=== PATIENT | male | born 1985 | race Hispanic/Latino ===

== ENCOUNTER 2019-02-12 19:55 | Inpatient (IN) | payer OTHER, SELFPAY ==
[2019-02-12 19:55] VITALS: BP 160/72; PULSE 98; RESP 14; TEMP 36.6; O2SAT 98
--- NOTE | 2019-02-12 20:20 | ED.ABDPAIN ---
HPI - Abdominal Pain General Chief Complaint: Abdominal Pain Stated Complaint: ABD PAIN Time Seen by Provider: 02/12/19 20:20 Source: patient Mode of arrival: ambulatory Limitations: no limitations History of Present Illness HPI narrative: The patient developed periumbilical abdominal pain about 11 a.m. today. He has had increased pain, now radiating to the right lower quadrant since onset. He had fever and chills earlier. He has no associated nausea, vomiting or diarrhea. He has no testicular pain or dysuria. He has no back pain. He has no chronic medical problems. He has no prior GI or surgeries. He is in generally good health. He has had nothing to eat since this morning, he has no appetite. Related Data Home Medications Medication Instructions Recorded Confirmed multivitamin [Multiple Vitamins] 1 tab PO QDAY #0 08/01/16 02/12/19 Allergies Allergy/AdvReac Type Severity Reaction Status Date / Time No Known Drug Allergies Allergy Verified 02/12/19 20:02 Review of Systems Review of Systems ROS Unobtainable: All systems reviewed & are unremarkable except as noted in HPI and below Constitutional Reports chills, Reports fever(s), Denies lethargy and Denies weakness ENT Ears, Nose, Mouth, and Throat: Denies dizziness, Denies neck pain and Denies sore throat Cardiovascular Denies chest pain, Denies lightheadedness, Denies palpitations and Denies dyspnea Respiratory Denies cough, Denies dyspnea and Denies wheezing Gastrointestinal Gastrointestinal: Reports as per HPI Genitourinary Reports as per HPI Musculoskeletal Denies back pain and Denies neck pain Integumentary/Breasts Denies erythema and Denies rash Neurologic Denies dizziness and Denies weakness Endocrine Denies palpitations Allergic/Immunologic Denies wheezing [facility] Medical History (Updated 02/12/19 @ 22:42 by Fredo Lou MD) No active medical problems (Acute) Obese (Acute) Surgical History (Updated 02/12/19 @ 20:37 by Fredo Lou MD) No pertinent past surgical history (Acute) Family History Father Age: 68 Type 2 diabetes mellitus without complication, unspecified termite treater helper insulin use status Social History household members: spouse and children Smoking Status: Never smoker alcohol intake: current Family History Father Age: 68 Type 2 diabetes mellitus without complication, unspecified [facility] insulin use status Social History household members: spouse and children Smoking Status: Never smoker alcohol intake: current Exam Initial Vital Signs Initial Vital Signs: Vital Signs Temperature 97.8 F 02/12/19 19:55 Pulse Rate 98 H 02/12/19 19:55 Respiratory Rate 14 02/12/19 19:55 Blood Pressure 160/72 H 02/12/19 19:55 Pulse Oximetry 98 02/12/19 19:55 Const General: cooperative and well developed Nutritional Appearance: well nourished Orientation: alert, awake and oriented x3 HENMT Head: normal to inspection, normocephalic and atraumatic Mouth: oral mucosae normal Throat: posterior oropharynx normal Eyes General: appearance normal, both eyes and all related structures Neck Lymphatic: No lymphadenopathy Resp Effort & Inspection: normal respiratory effort and able to speak in complete sentences Auscultation: clear to auscultation bilaterally, no rales, no rhonchi and no wheezes Cardio Rate: regular rate Rhythm: regular rhythm Heart Sounds: S1 normal, S2 normal, no click, no gallops, no murmurs and no rubs Pulses: normal peripheral pulses GI Inspection: non-distended Palpation: no hepatosplenomegaly Auscultation: normal bowel sounds Other: Periumbilical and right lower quadrant tenderness with guarding. No rebound. Negative heel tap. Back/Spine/Pelvis Back: No CVA tenderness Skin General: no rashes or lesions noted Neuro General: alert, oriented x3, gait normal and no focal motor deficits Speech: speech normal Extrem General: normal to inspection and full ROM Psych Appearance: well kempt Mental Status: mental status grossly normal Attitude: cooperative Thought Content: normal and suicidality Judgment: judgment good Course Course Narrative: Acute appendicitis was confirmed with CT. I discussed the case with surgery, Dr. Zamorano. Dr. Zamorano has accepted the patient. The patient will be started on Zosyn, then admitted to the surgery service. He will be NPO with anticipated surgery in the morning. Orders Ordered: ED Orders 02/12/19 20:03 EKG-12 Lead Stat 02/12/19 20:20 Complete Blood Count AUTO DIFF Stat Comprehensive Metabolic Panel Stat Lipase Stat Partial Thromboplastin Time Stat Prothrombin Time INR Stat 02/12/19 20:33 CT abdomen pelvis w con Stat Hydromorphone HCl (Dilaudid) 1 mg IV Q4HR PRN PRN Reason: Pain, Moderate (4-6) Last Admin: 02/13/19 00:12 Dose: 1 mg Piperacillin/Tazobactam/Dextrose (Zosyn) 3.375 gm in 50 mls @ 100 mls/hr IV Q6H [facility] Last Infusion: 02/13/19 00:46 Dose: 0 mls/hr Infusion: 02/12/19 23:39 Dose: 100 mls/hr Admin: 02/12/19 23:06 Dose: 100 mls/hr Sodium Chloride (Normal Saline 0.9%) 1,000 mls @ 150 mls/hr IV CONT [facility] Last Infusion: 02/12/19 23:40 Dose: 150 mls/hr Admin: 02/12/19 23:06 Dose: 150 mls/hr Ondansetron HCl (Zofran) 4 mg IV Q4HR PRN PRN Reason: Nausea And Vomiting Sodium Chloride (Normal Saline 0.9% Flush) 10 ml IV PRN PRN PRN Reason: Flush Last Admin: 02/13/19 00:47 Dose: 10 ml Discontinued Medications Piperacillin/Tazobactam/Dextrose (Zosyn) 3.375 gm in 50 mls @ 100 mls/hr IV Q6H [facility] Last Admin: 02/12/19 23:09 Dose: Not Given Ketorolac Tromethamine (Toradol) 30 mg IV NOW ONE Stop: 02/12/19 20:34 Last Admin: 02/12/19 21:03 Dose: 30 mg Ondansetron HCl (Zofran) 4 mg IV NOW ONE Stop: 02/12/19 20:04 Last Admin: 02/12/19 20:24 Dose: 4 mg Vital Signs - 8 hr 02/12/19 19:55 02/12/19 22:17 02/13/19 00:02 Temperature 97.8 F 99.7 F H Pulse Rate 98 H 89 78 Respiratory Rate 14 19 16 Blood Pressure 160/72 H 146/80 H Blood Pressure [Right Arm] 135/81 Pulse Oximetry 98 100 98 02/13/19 00:12 Temperature 97.7 F Pulse Rate Respiratory Rate Blood Pressure Blood Pressure [Right Arm] Pulse Oximetry MDM - Abdominal Pain Lab Data Result diagrams: 02/12/19 20:20 02/12/19 20:20 Lab Results 02/12/19 02/12/19 02/12/19 Range/Units 20:20 20:20 20:20 WBC 12.3 H (4.5-11.0) X10^3/uL RBC 5.13 (4.5-5.9) X10^6/uL Hgb 15.5 (13.5-17.5) g/dL Hct 44.8 (41-53) % MCV 87.4 (80-100) fL MCH 30.2 (26-34) PG MCHC 34.6 (30-36) % RDW 13.2 (11.6-14.8) % Plt Count 246 (150-400) X10^3/uL Neut % (Auto) 85.7 H (50-75) % Lymph % (Auto) 8.1 L (25-40) % [place] % (Auto) 5.3 (3-14) % Eos % (Auto) 0.5 L (2-4) % Baso % (Auto) 0.4 (0-2) % Neut # (Auto) 78547 H (1377-0924) /uL Lymph # (Auto) 1000 L (3913-4311) /uL Fisher # (Auto) 700 (0-900) /uL Eos # (Auto) 100 (0-450) /uL Baso # (Auto) 0 (0-100) /uL PT 12.0 (10.1-12.7) SECONDS INR 1.0 (0.9-1.3) APTT 31 (26.4-36.2) SECONDS Sodium 140 (137-145) mmol/L Potassium 4.2 (3.4-5.1) mmol/L Chloride 101 (98-107) mmol/L Carbon Dioxide 27 (22-32) mmol/L BUN 12 (9-20) mg/dL Creatinine 0.70 (0.66-1.25) mg/dL Estimated GFR > 60.0 (>60) mL/min BUN/Creatinine Ratio 17.1 (6-22) Glucose 128 H (70-100) mg/dL Calcium 9.8 (8.4-10.2) mg/dL Total Bilirubin 1.2 (0.2-1.3) mg/dL AST 26 (17-59) IU/L ALT 43 (21-72) IU/L Alkaline Phosphatase 74 (38-126) U/L Total Protein 8.1 (6.3-8.2) g/dL Albumin 4.8 (3.5-5.0) g/dL Globulin 3.3 (1.7-4.1) g/dL Albumin/Globulin Ratio 1.5 (1.0-2.8) Lipase 49 (23-300) U/L Point of care testing: Urine Dip Bedside Urine Glucose Negative Bedside Urine Bilirubin - Negative Bedside Urine Ketone - Negative Urine Specific [place] 1.030 Bedside Urine Occult Blood - Negative Bedside Urine pH 5.0 Bedside Urine Protein +/- 15 Bedside Urine Urobilinogen - Negative Bedside Urine Nitrite - Negative Bedside Urine Leukocytes - Negative Esterase Imaging Data CT scan - abdomen: Radiologist's impression: [place] [address] CT Scan Report Signed Patient: ElmoFredo perez LMR#: [id number] : 1985Acct:[id number] Age/Sex: te of Service: 02/12/19 Loc: ED Accession Number: [id number] Procedure: CT abdomen pelvis w con Ordering Provider: Fredo Lou MD PROCEDURE: CT ABDOMEN PELVIS W CON INDICATIONS: RLQ pain TECHNIQUE: After the administration of oral and intravenous contrast, 5 mm thick sections acquired from the diaphragms to the symphysis. 5 mm thick coronal and sagittal reformats were performed. For radiation dose reduction, the following was used: automated exposure control, adjustment of mA and/or kV according to patient size. COMPARISON: None. FINDINGS: Image quality: Excellent. ABDOMEN: Lung bases: Lung bases are clear. Heart size is normal. Solid organs: Liver is normal in size. Moderate hepatic steatosis is seen. No discrete hepatic lesion. Gallbladder is within normal limits. Biliary system is non-dilated. Pancreas enhances normally. Spleen is normal in size. 1.9 cm hypodense structure is noted involving posterior inferior aspect of spleen and may represent a splenic cyst. No adrenal nodules. Kidneys are normal in size and enhancement, without hydronephrosis. Peritoneum and bowel: There is no bowel obstruction. 8mm appendicolith is noted in the mid appendix. Mid to distal appendix is enlarged, measures up to 1.3 cm in diameter with periappendiceal fat stranding and appendiceal wall thickening. Mild adjacent wall thickening in the ileocecal junction is also seen. Finding is suggestive of acute appendicitis. No abscess collection. No free fluid or free air. No other area of abnormal bowel wall thickening. Nodes and vessels: No retroperitoneal or mesenteric adenopathy. Aorta and inferior vena cava are normal in caliber. Miscellaneous: No ventral hernias. PELVIS: Genitourinary: Bladder wall thickness is normal. Miscellaneous: No inguinal hernias or adenopathy. Bones: No suspicious bony lesions. No vertebral body compression fractures. IMPRESSION: 1. Finding is consistent with acute appendicitis with appendicolith. No abscess collection. No bowel obstruction. No free fluid or free air. 2. 1.9 cm hypodense area involving posterior inferior spleen, and may represent splenic cysts. Hepatic steatosis. Dictated by: Shin Morel M.D. on 02/12/2019 at 21:54 Approved by: Shin Morel M.D. on 02/12/2019 at 21:58 Discharge Plan Departure Patient Disposition: Admitted As Inpatient Clinical Impression: Acute appendicitis Qualifiers: Acute appendicitis type: with localized peritonitis Appendicitis gangrene presence: without gangrene Appendicitis perforation presence: without perforation Appendicitis abscess presence: without abscess Qualified Code(s): K35.30 - Acute appendicitis with localized peritonitis, without perforation or gangrene Discharge Date/Time: 02/12/19 23:42 Interventions: ED Discharge Assessment Last Done: 02/12/19 23:41 Admit Date/Time: 02/12/19 23:28 Admit Provider: Rah Zamorano
[2019-02-12] MEDS: ONDANSETRON 4 MG/2 ML INJ IV (20:24)
[2019-02-12 20:33] LABS: Add Manual Diff / Slide Review NO; Basophils Absolute Auto 0 /uL (0-100); Basophils Percent Auto 0.4 % (0-2); Eosinophils Absolute Auto 100 /uL (0-450); Eosinophils Percent Auto 0.5 % (2-4); Hematocrit 44.8 % (41-53); Hemoglobin 15.5 g/dL (13.5-17.5); Lymphocytes Absolute Auto 1000 /uL (1100-4500); Lymphocytes Percent Auto 8.1 % (25-40); Mean Corpuscular HGB Conc 34.6 % (30-36); Mean Corpuscular Hemoglobin 30.2 PG (26-34); Mean Corpuscular Volume 87.4 fL (80-100); Monocytes Absolute Auto 700 /uL (0-900); Monocytes Percent Auto 5.3 % (3-14); Neutrophils Absolute Auto 10500 /uL (1500-7000); Neutrophils Percent Auto 85.7 % (50-75); Platelet Count 246 X10^3/uL (150-400); Red Blood Cell Count 5.13 X10^6/uL (4.5-5.9); Red Cell Distribution Width 13.2 % (11.6-14.8); White Blood Cell Count 12.3 X10^3/uL (4.5-11.0)
--- NOTE | 2019-02-12 20:33 | DI.CT.S_ITS ---
PROCEDURE: CT ABDOMEN PELVIS W CON INDICATIONS: RLQ pain TECHNIQUE: After the administration of oral and intravenous contrast, 5 mm thick sections acquired from the diaphragms to the symphysis. 5 mm thick coronal and sagittal reformats were performed. For radiation dose reduction, the following was used: automated exposure control, adjustment of mA and/or kV according to patient size. COMPARISON: None. FINDINGS: Image quality: Excellent. ABDOMEN: Lung bases: Lung bases are clear. Heart size is normal. Solid organs: Liver is normal in size. Moderate hepatic steatosis is seen. No discrete hepatic lesion. Gallbladder is within normal limits. Biliary system is non-dilated. Pancreas enhances normally. Spleen is normal in size. 1.9 cm hypodense structure is noted involving posterior inferior aspect of spleen and may represent a splenic cyst. No adrenal nodules. Kidneys are normal in size and enhancement, without hydronephrosis. Peritoneum and bowel: There is no bowel obstruction. 8mm appendicolith is noted in the mid appendix. Mid to distal appendix is enlarged, measures up to 1.3 cm in diameter with periappendiceal fat stranding and appendiceal wall thickening. Mild adjacent wall thickening in the ileocecal junction is also seen. Finding is suggestive of acute appendicitis. No abscess collection. No free fluid or free air. No other area of abnormal bowel wall thickening. Nodes and vessels: No retroperitoneal or mesenteric adenopathy. Aorta and inferior vena cava are normal in caliber. Miscellaneous: No ventral hernias. PELVIS: Genitourinary: Bladder wall thickness is normal. Miscellaneous: No inguinal hernias or adenopathy. Bones: No suspicious bony lesions. No vertebral body compression fractures. IMPRESSION: 1. Finding is consistent with acute appendicitis with appendicolith. No abscess collection. No bowel obstruction. No free fluid or free air. 2. 1.9 cm hypodense area involving posterior inferior spleen, and may represent splenic cysts. Hepatic steatosis. Dictated by: Shin Morel M.D. on 02/12/2019 at 21:54 Approved by: Shin Morel M.D. on 02/12/2019 at 21:58
[2019-02-12 20:39] LABS: Alanine Aminotransferase 43 IU/L (21-72); Albumin 4.8 g/dL (3.5-5.0); Albumin Globulin Ratio 1.5 (1.0-2.8); Alkaline Phosphatase 74 U/L (38-126); Aspartate Aminotransferase 26 IU/L (17-59); BUN Creatinine Ratio 17.1 (6-22); Bilirubin Total 1.2 mg/dL (0.2-1.3); Blood Urea Nitrogen 12 mg/dL (9-20); Calcium 9.8 mg/dL (8.4-10.2); Carbon Dioxide 27 mmol/L (22-32); Chloride 101 mmol/L (98-107); Estimated Glomerular Filt Rate > 60.0 mL/min (>60); Globulin 3.3 g/dL (1.7-4.1); Glucose 128 mg/dL (70-100); HEMOLYSIS < 15 (0-50); Lipase 49 U/L (23-300); Potassium 4.2 mmol/L (3.4-5.1); Sodium 140 mmol/L (137-145); Total Protein 8.1 g/dL (6.3-8.2)
--- NOTE | 2019-02-12 20:39 | ED_ITS ---
HPI - Abdominal Pain General Chief Complaint: Abdominal Pain Stated Complaint: ABD PAIN Time Seen by Provider: 02/12/19 20:20 Source: patient Mode of arrival: ambulatory Limitations: no limitations History of Present Illness HPI narrative: The patient developed periumbilical abdominal pain about 11 a.m. today. He has had increased pain, now radiating to the right lower quadrant since onset. He had fever and chills earlier. He has no associated nausea, vomiting or diarrhea. He has no testicular pain or dysuria. He has no back pain. He has no chronic medical problems. He has no prior GI or surgeries. He is in generally good health. He has had nothing to eat since this morning, he has no appetite. Related Data Home Medications Medication Instructions Recorded Confirmed multivitamin [Multiple Vitamins] 1 tab PO QDAY #0 08/01/16 02/12/19 Allergies Allergy/AdvReac Type Severity Reaction Status Date / Time No Known Drug Allergies Allergy Verified 02/12/19 20:02 Review of Systems Review of Systems ROS Unobtainable: All systems reviewed & are unremarkable except as noted in HPI and below Constitutional Reports chills, Reports fever(s), Denies lethargy and Denies weakness ENT Ears, Nose, Mouth, and Throat: Denies dizziness, Denies neck pain and Denies sore throat Cardiovascular Denies chest pain, Denies lightheadedness, Denies palpitations and Denies dyspnea Respiratory Denies cough, Denies dyspnea and Denies wheezing Gastrointestinal Gastrointestinal: Reports as per HPI Genitourinary Reports as per HPI Musculoskeletal Denies back pain and Denies neck pain Integumentary/Breasts Denies erythema and Denies rash Neurologic Denies dizziness and Denies weakness Endocrine Denies palpitations Allergic/Immunologic Denies wheezing [facility] Medical History (Updated 02/12/19 @ 22:42 by Fredo Lou MD) No active medical problems (Acute) Obese (Acute) Surgical History (Updated 02/12/19 @ 20:37 by Fredo Lou MD) No pertinent past surgical history (Acute) Family History Father Age: 68 Type 2 diabetes mellitus without complication, 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 Social History household members: spouse and children Smoking Status: Never smoker alcohol intake: current Family History Father Age: 68 Type 2 diabetes mellitus without complication, unspecified correction insulin use status Social History household members: spouse and children Smoking Status: Never smoker alcohol intake: current Exam Initial Vital Signs Initial Vital Signs: Vital Signs Temperature 97.8 F 02/12/19 19:55 Pulse Rate 98 H 02/12/19 19:55 Respiratory Rate 14 02/12/19 19:55 Blood Pressure 160/72 H 02/12/19 19:55 Pulse Oximetry 98 02/12/19 19:55 Const General: cooperative and well developed Nutritional Appearance: well nourished Orientation: alert, awake and oriented x3 HENMT Head: normal to inspection, normocephalic and atraumatic Mouth: oral mucosae normal Throat: posterior oropharynx normal Eyes General: appearance normal, both eyes and all related structures Neck Lymphatic: No lymphadenopathy Resp Effort & Inspection: normal respiratory effort and able to speak in complete sentences Auscultation: clear to auscultation bilaterally, no rales, no rhonchi and no wheezes Cardio Rate: regular rate Rhythm: regular rhythm Heart Sounds: S1 normal, S2 normal, no click, no gallops, no murmurs and no rubs Pulses: normal peripheral pulses GI Inspection: non-distended Palpation: no hepatosplenomegaly Auscultation: normal bowel sounds Other: Periumbilical and right lower quadrant tenderness with guarding. No rebound. Negative heel tap. Back/Spine/Pelvis Back: No CVA tenderness Skin General: no rashes or lesions noted Neuro General: alert, oriented x3, gait normal and no focal motor deficits Speech: speech normal Extrem General: normal to inspection and full ROM Psych Appearance: well kempt Mental Status: mental status grossly normal Attitude: cooperative Thought Content: normal and suicidality Judgment: judgment good Course Course Narrative: Acute appendicitis was confirmed with CT. I discussed the case with surgery, Dr. Zamorano. Dr. Zamorano has accepted the patient. The patient will be started on Zosyn, then admitted to the surgery service. He will be NPO with anticipated surgery in the morning. Orders Ordered: ED Orders 02/12/19 20:03 EKG-12 Lead Stat 02/12/19 20:20 Complete Blood Count AUTO DIFF Stat Comprehensive Metabolic Panel Stat Lipase Stat Partial Thromboplastin Time Stat Prothrombin Time INR Stat 02/12/19 20:33 CT abdomen pelvis w con Stat Hydromorphone HCl (Dilaudid) 1 mg IV Q4HR PRN PRN Reason: Pain, Moderate (4-6) Last Admin: 02/13/19 00:12 Dose: 1 mg Piperacillin/Tazobactam/Dextrose (Zosyn) 3.375 gm in 50 mls @ 100 mls/hr IV Q6H [facility] Last Infusion: 02/13/19 00:46 Dose: 0 mls/hr Infusion: 02/12/19 23:39 Dose: 100 mls/hr Admin: 02/12/19 23:06 Dose: 100 mls/hr Sodium Chloride (Normal Saline 0.9%) 1,000 mls @ 150 mls/hr IV CONT [facility] Last Infusion: 02/12/19 23:40 Dose: 150 mls/hr Admin: 02/12/19 23:06 Dose: 150 mls/hr Ondansetron HCl (Zofran) 4 mg IV Q4HR PRN PRN Reason: Nausea And Vomiting Sodium Chloride (Normal Saline 0.9% Flush) 10 ml IV PRN PRN PRN Reason: Flush Last Admin: 02/13/19 00:47 Dose: 10 ml Discontinued Medications Piperacillin/Tazobactam/Dextrose (Zosyn) 3.375 gm in 50 mls @ 100 mls/hr IV Q6H [facility] Last Admin: 02/12/19 23:09 Dose: Not Given Ketorolac Tromethamine (Toradol) 30 mg IV NOW ONE Stop: 02/12/19 20:34 Last Admin: 02/12/19 21:03 Dose: 30 mg Ondansetron HCl (Zofran) 4 mg IV NOW ONE Stop: 02/12/19 20:04 Last Admin: 02/12/19 20:24 Dose: 4 mg Vital Signs - 8 hr 02/12/19 19:55 02/12/19 22:17 02/13/19 00:02 Temperature 97.8 F 99.7 F H Pulse Rate 98 H 89 78 Respiratory Rate 14 19 16 Blood Pressure 160/72 H 146/80 H Blood Pressure [Right Arm] 135/81 Pulse Oximetry 98 100 98 02/13/19 00:12 Temperature 97.7 F Pulse Rate Respiratory Rate Blood Pressure Blood Pressure [Right Arm] Pulse Oximetry MDM - Abdominal Pain Lab Data Result diagrams: 02/12/19 20:20 02/12/19 20:20 Lab Results 02/12/19 02/12/19 02/12/19 Range/Units 20:20 20:20 20:20 WBC 12.3 H (4.5-11.0) X10^3/uL RBC 5.13 (4.5-5.9) X10^6/uL Hgb 15.5 (13.5-17.5) g/dL Hct 44.8 (41-53) % MCV 87.4 (80-100) fL MCH 30.2 (26-34) PG MCHC 34.6 (30-36) % RDW 13.2 (11.6-14.8) % Plt Count 246 (150-400) X10^3/uL Neut % (Auto) 85.7 H (50-75) % Lymph % (Auto) 8.1 L (25-40) % [place] % (Auto) 5.3 (3-14) % Eos % (Auto) 0.5 L (2-4) % Baso % (Auto) 0.4 (0-2) % Neut # (Auto) 85974 H (8717-9003) /uL Lymph # (Auto) 1000 L (0329-9672) /uL [place] # (Auto) 700 (0-900) /uL Eos # (Auto) 100 (0-450) /uL Baso # (Auto) 0 (0-100) /uL PT 12.0 (10.1-12.7) SECONDS INR 1.0 (0.9-1.3) APTT 31 (26.4-36.2) SECONDS Sodium 140 (137-145) mmol/L Potassium 4.2 (3.4-5.1) mmol/L Chloride 101 (98-107) mmol/L Carbon Dioxide 27 (22-32) mmol/L BUN 12 (9-20) mg/dL Creatinine 0.70 (0.66-1.25) mg/dL Estimated GFR > 60.0 (>60) mL/min BUN/Creatinine Ratio 17.1 (6-22) Glucose 128 H (70-100) mg/dL Calcium 9.8 (8.4-10.2) mg/dL Total Bilirubin 1.2 (0.2-1.3) mg/dL AST 26 (17-59) IU/L ALT 43 (21-72) IU/L Alkaline Phosphatase 74 (38-126) U/L Total Protein 8.1 (6.3-8.2) g/dL Albumin 4.8 (3.5-5.0) g/dL Globulin 3.3 (1.7-4.1) g/dL Albumin/Globulin Ratio 1.5 (1.0-2.8) Lipase 49 (23-300) U/L Point of care testing: Urine Dip Bedside Urine Glucose Negative Bedside Urine Bilirubin - Negative Bedside Urine Ketone - Negative Urine Specific [place] 1.030 Bedside Urine Occult Blood - Negative Bedside Urine pH 5.0 Bedside Urine Protein +/- 15 Bedside Urine Urobilinogen - Negative Bedside Urine Nitrite - Negative Bedside Urine Leukocytes - Negative Esterase Imaging Data CT scan - abdomen: Radiologist's impression: [place] [address] CT Scan Report Signed Patient: ElmoFredo perez LMR#: [id number] : 1985Acct:[id number] Age/Sex: te of Service: 02/12/19 Loc: ED Accession Number: [id number] Procedure: CT abdomen pelvis w con Ordering Provider: Fredo Lou MD PROCEDURE: CT ABDOMEN PELVIS W CON INDICATIONS: RLQ pain TECHNIQUE: After the administration of oral and intravenous contrast, 5 mm thick sections acquired from the diaphragms to the symphysis. 5 mm thick coronal and sagittal reformats were performed. For radiation dose reduction, the following was used: automated exposure control, adjustment of mA and/or kV according to patient size. COMPARISON: None. FINDINGS: Image quality: Excellent. ABDOMEN: Lung bases: Lung bases are clear. Heart size is normal. Solid organs: Liver is normal in size. Moderate hepatic steatosis is seen. No discrete hepatic lesion. Gallbladder is within normal limits. Biliary system is non- dilated. Pancreas enhances normally. Spleen is normal in size. 1.9 cm hypodense structure is noted involving posterior inferior aspect of spleen and may represent a splenic cyst. No adrenal nodules. Kidneys are normal in size and enhancement, without hydronephrosis. Peritoneum and bowel: There is no bowel obstruction. 8mm appendicolith is noted in the mid appendix. Mid to distal appendix is enlarged, measures up to 1.3 cm in diameter with periappendiceal fat stranding and appendiceal wall thickening. Mild adjacent wall thickening in the ileocecal junction is also seen. Finding is suggestive of acute appendicitis. No abscess collection. No free fluid or free air. No other area of abnormal bowel wall thickening. Nodes and vessels: No retroperitoneal or mesenteric adenopathy. Aorta and inferior vena cava are normal in caliber. Miscellaneous: No ventral hernias. PELVIS: Genitourinary: Bladder wall thickness is normal. Miscellaneous: No inguinal hernias or adenopathy. Bones: No suspicious bony lesions. No vertebral body compression fractures. IMPRESSION: 1. Finding is consistent with acute appendicitis with appendicolith. No abscess collection. No bowel obstruction. No free fluid or free air. 2. 1.9 cm hypodense area involving posterior inferior spleen, and may represent splenic cysts. Hepatic steatosis. Dictated by: Shin Morel M.D. on 02/12/2019 at 21:54 Approved by: Shin Morel M.D. on 02/12/2019 at 21:58 Discharge Plan Departure Patient Disposition: Admitted As Inpatient Clinical Impression: Acute appendicitis Qualifiers: Acute appendicitis type: with localized peritonitis Appendicitis gangrene presence: without gangrene Appendicitis perforation presence: without perforation Appendicitis abscess presence: without abscess Qualified Code(s): K35.30 - Acute appendicitis with localized peritonitis, without perforation or gangrene Discharge Date/Time: 02/12/19 23:42 Interventions: ED Discharge Assessment Last Done: 02/12/19 23:41 Admit Date/Time: 02/12/19 23:28 Admit Provider: Rah Zamorano
[2019-02-12 20:42] LABS: PTT Partial Thromboplastin Tim 31 SECONDS (26.4-36.2)
[2019-02-12] MEDS: KETOROLAC 60 MG/2 ML VIAL 30 MG IV (21:03)
[2019-02-12 22:17] VITALS: BP 135/81; PULSE 89; RESP 19; O2SAT 100
[2019-02-12] MEDS: SODIUM CHLORIDE 0.9% 1,000 ML 150 ML IV (23:06)
[2019-02-12] MEDS: PIPERACILLIN-TAZO 3.375 GM/50 ML FROZ.PIGGY IV (23:06)
[2019-02-13] VITALS (19 sets, daily range): BP systolic 110–147; BP diastolic 66–95; PULSE 77–106; RESP 12–24; TEMP 36.5–37.6; O2SAT 92–99; BMI 37.0
--- NOTE | 2019-02-13 | PATH_ITS ---
[facility] Accession Number: [id number] . 01 Material submitted: . appendix - APPENDIX . 01 Clinical history: . ABD. PAIN . 02 Diagnosis: Appendix, Appendectomy: Markedly active acute appendicitis with serositis. No evidence of neoplasm. I/02/17/2019 . 02 Electronically signed: . Tyrell Dubon MD, PhD, Pathologist NPI- [id number] . 01 Gross description: . Received in formalin, labeled appendix, is an intact appendix (length-8.4 cm, diameter-1.1 cm) with aguilera-brown focally exudate-covered serosa and attached mesoappendix (up to 2.2 cm in depth). The resection margin is received opened. The lumen contains brown solid soft material. The wall is up to 0.2 cm thick. No nodules, masses or lesions are identified. The resection margin is inked black. Section code: (A1) resection margin en face and three additional benefits representative serial sections; (A2) one-half of the bivalved tip. ([id number]) /MRV . 02 Pathologist provided ICD-10: K35.20 . 02 CPT . 884865 Performed at: 01 [facility] [address], [place], [place] [id number] MD Justus Kulkarni MD Phone: [phone] Performed at: 02 [facility] [address] [place], [place] [id number] MD Venessa Lin MD Phone: [phone]
[2019-02-13] MEDS: HYDROMORPHONE 2 MG INJ 1 MG IV ×2 (00:12→04:29)
[2019-02-13] MEDS: SODIUM CHLORIDE 0.9% FLUSH 10 ML IV (00:47)
--- NOTE | 2019-02-13 01:43 | PC.NURSE ---
NOC Shift: Pt admitted from ED for acute appendicitis per abdomen pain, CT scan verify. Pt AAOx3, ambulatory w/o problems. Oriented to unit and discussed plan for OR at [address] Zamorano. Pt understands and agrees with NPO status. ABD largely round baseline habitus, tender to lower quadrants, hypoactive BT's, pt states he has been having diarrhea all day, unseen at this time. Denies nausea. Pain 5/10 will medicate with Diluadid IVP. IVF's ordered and started, IV ABX started. Rahel is in [place] visiting family and will be calling for updates.
[2019-02-13] MEDS: SODIUM CHLORIDE 0.9% 1,000 ML 150 ML IV (04:30)
[2019-02-13] MEDS: PIPERACILLIN-TAZO 3.375 GM/50 ML FROZ.PIGGY IV ×3 (04:30→18:16)
[2019-02-13] MEDS: ONDANSETRON 4 MG/2 ML INJ IV (04:52)
--- NOTE | 2019-02-13 07:49 | P.HP_ITS ---
History of Present Illness Date Patient Seen: 02/13/19 Time Patient Seen: 07:30 Chief complaint: ABD PAIN Narrative: The patient is a gentleman with a one-day history of right lower abdominal pain. It was a bit sharper and has become a dull ache. Increases with motion. No prior history. Accompanied by nausea but no vomiting. Some anorexia as well. Last p.o. was yesterday. Patient History Medical History No active medical problems (Acute) Obese (Acute) Surgical History No pertinent past surgical history (Acute) Family History Father Age: 68 Type 2 diabetes mellitus without complication, unspecified skilled nursing insulin use status Social History household members: spouse and children Smoking Status: Never smoker alcohol intake: current Family & Social History Family History Father Age: 68 Type 2 diabetes mellitus without complication, unspecified skilled nursing insulin use status Social History: household members spouse,children Prior Living Arrangements House Safety & Behavioral: Feels Safe in Current Yes Environment Been Physically Hurt or No Threatened By a Person Suicidal Ideation Description None Tobacco & Substance use: Smoking Status Never smoker alcohol intake current alcohol intake frequency 3 or more drinks per day Substance Use Type does not use Meds Home Medications Medication Instructions Recorded Confirmed Type multivitamin [Multiple Vitamins] 1 tab PO QDAY #0 08/01/16 02/12/19 History Allergies Allergy/AdvReac Type Severity Reaction Status Date / Time No Known Drug Allergies Allergy Verified 02/12/19 20:02 Review of Systems Review of Systems Patient denies is double vision pain is eyes earache sore throat or trouble swallowing. No tooth aches. No cough cold or asthma. Had some chest tightness recently evaluated and felt to be noncardiac. No known heart disease. No murmurs. No black or bloody bowel movements. No dysuria or hematuria. No history kidney stones. No seizures or blackouts. No anxiety or depression. No unusual bruising or bleeding. Exam Vital Signs (past 8 hours): - 02/13/19 00:02 02/13/19 00:12 02/13/19 04:29 Temperature 99.7 F H 97.7 F 99.7 F H Pulse Rate 78 Respiratory Rate 16 Blood Pressure 146/80 H Pulse Oximetry 98 02/13/19 04:31 Temperature 99.7 F H Pulse Rate 102 H Respiratory Rate 18 Blood Pressure 137/86 Pulse Oximetry 98 Oxygen Delivery Method Room Air Oxygen Flow Rate 0 Narrative Exam Narrative: Cooperative gentleman in no apparent distress. A bit heavy. His eyes are nonicteric. Pupils equal round reactive to light. Conjunctivae are pink. Lids without swelling. Ears without lesion. Nasal septum is midline without polyps. Oral mucosa is a bit dry no open lesions. Teeth are intact. Neck is supple. There are no nodes in the neck or supraclavicular areas. Trachea is midline mobile. Thyroid is not enlarged. There are no new masses in the neck or thyroid. Lungs are clear to auscultation without rales or rhonchi. Good air movement. Equal percussion. Heart regular rate and rhythm without murmur gallop. No heave lift or thrill. Abdomen is protuberant soft. No guarding. There is localized tenderness in the right lower quadrant. The remainder the abdomen is soft nontender. No ventral hernias are appreciated. Liver and spleen are not obviously enlarged. Patient is extremities without cyanosis clubbing edema or bony deformity. 2+ dorsalis pedis pulses. Patient alert and oriented x3. Speech rate and content are appropriate. Affect is appropriate. Objective Imaging CT scan - abdomen: My impression: Patient has evidence of fecalith and a distended appendix distal. Some stranding around. The S in his spleen that appear cystic Labs Result Diagrams: 02/12/19 20:20 02/12/19 20:20 Labs: Laboratory Results - last 24 hr 02/12/19 02/12/19 02/12/19 20:20 20:20 20:20 WBC 12.3 H RBC 5.13 Hgb 15.5 Hct 44.8 MCV 87.4 MCH 30.2 MCHC 34.6 RDW 13.2 Plt Count 246 Neut % (Auto) 85.7 H Lymph % (Auto) 8.1 L [place] % (Auto) 5.3 Eos % (Auto) 0.5 L Baso % (Auto) 0.4 Neut # (Auto) 74335 H Lymph # (Auto) 1000 L [place] # (Auto) 700 Eos # (Auto) 100 Baso # (Auto) 0 PT 12.0 INR 1.0 APTT 31 Sodium 140 Potassium 4.2 Chloride 101 Carbon Dioxide 27 BUN 12 Creatinine 0.70 Estimated GFR > 60.0 BUN/Creatinine Ratio 17.1 Glucose 128 H Calcium 9.8 Total Bilirubin 1.2 AST 26 ALT 43 Alkaline Phosphatase 74 Total Protein 8.1 Albumin 4.8 Globulin 3.3 Albumin/Globulin Ratio 1.5 Lipase 49 Assessment & Plan Assessment & Plan narrative: Patient with signs symptoms labs and a CT consistent with acute appendicitis. I have discussed laparoscopic appendectomy with him. Risks of bleeding, infection, stump leak all discussed. He appears to understand wishes to proceed. Could get a hernia so I will want him to take it easy afterward. Quality VTE Deep Vein Thrombosis/Pulmonary Embolism Present on Admission: No
--- NOTE | 2019-02-13 07:52 | PM.PREOP ---
Pre-operative Note Interval Note History & Physical reviewed/Exam performed by Physician: Yes Changes to H&P: No
--- NOTE | 2019-02-13 08:59 | SUR.OPER ---
Supine on padded OR bed, head on pillow, left arm padded and tucked at side, legs uncrossed, safety belt at thigh, tape over blanket over lower legs .
[2019-02-13] MEDS: CEFOTETAN 2 GM/50 ML PIGGYBACK IV (09:05)
[2019-02-13] MEDS: BUPIVACAINE 0.5% (PF) VIAL 30 ML INJ (09:07)
[2019-02-13] MEDS: LACTATED RINGERS 1,000 ML 42 ML IV (09:08)
--- NOTE | 2019-02-13 10:09 | PC.NURSE ---
Addendum entered by Vandana Perkins R.N. 02/13/19 13:57: PAIN - given 30mg iv toradol for abd discomfort, standby assist up to void, to chair for clear liq lunch, no nausea, tano well and states after earlier toradol I feel great. Addendum entered by Vandana Perkins R.N. 02/13/19 11:30: POST OP ARRIVAL 1100 - awake, mildly drowsy, had rec'd fentanyl in pacu prior to transport, reports pain 8 on scale 0/10, added ice packs to abd, denies nausea, no bt yet, abd soft, lucas compressed with serosang in tubing, bandaids cdi, 2l 02 sat 95%, p 90, 146/90, given ice chips, new order toradol admin. Original Note: AM NOTE - pt is alert, denies nausea now, describes abd discomfort as pressure like, in and consent signed, taken by KNOCKER OFF to surgery.
--- NOTE | 2019-02-13 10:21 | PM.OP.1 ---
Operative Date/Time/Diagnoses Date of procedure: 02/13/19 Time of procedure: 10:00 Pre-op diagnosis: Acute appendicitis Post-op diagnosis: other (Perforated gangrenous appendicitis) Procedure & Clinicians Procedure: Laparoscopic appendectomy Same procedure as scheduled: Yes Indications: Clinical history physical exam is and imaging consistent with appendicitis Surgeon: Rah Zamorano Click Yes if Unassisted: Yes Anesthesia Type: General Operative Notes Findings: Necrotic appendicitis with visible perforation distal half of the appendix Closure Type: primary Specimen(s): other (Appendix) Applied: drain(s) (Tan-Solorzano 7 mm drain placed in the right gutter) Estimated Blood Loss (mL): 20 Blood products transfused: none Procedure in detail: The patient was placed supine on the operating room table and underwent general endotracheal anesthesia. He was prepped and draped in the usual fashion. Because of his anatomy is small incision was made above the umbilicus and carried down under direct vision into the peritoneal cavity. Stay sutures of 0 Vicryl were placed in the fascia. A 12 mm cannula was inserted. The abdomen insufflated and 2 additional ports were placed. One was between the umbilicus and the pubis and the other in the left lower quadrant. The patient was repositioned on the table in I swept the intestine trying to identify the cecum. The patient had an inordinate amount of intraperitoneal fat. I finally located the appendix with great difficulty it was clear that I would need port just to hold the small bowel out of the way so I could visualize the appendix. Near midline. The appendix was grasped and elevated. The mesoappendix was divided using cautery and blunt dissection. The bases was identified and cleared. It was healthy. A loop was placed on the appendix base. This was 0 PDS. A clamp was crushed across the appendix distal to this and the appendix was divided using scissors with cautery. The mucosa was cauterized. The appendix was immediately placed in a bag and removed without spillage through the umbilical port. the right gutter was irrigated and suctioned free of fluid as was the pelvis. I decided to place a drain along the right gutter due to his obesity and my concern about a postoperative abscess. It was brought out through the suprapubic port site. It was secured with 3 0 nylon. The ports were all removed there was no ongoing bleeding. The 0 Vicryl at the umbilicus was tied and an additional 2 0 PDS was placed between the 2 0 Vicryl to completely close the fascia. Wounds were irrigated and 4 0 Vicryl subcuticular stitches were used to close the wounds in all locations. Steri-Strips and dressings were applied. The patient was awakened, extubated taken recovery area in good condition. Complications: none Condition: stable Disposition: PACU Plan for aftercare: Admit to inpatient for IV antibiotics
[2019-02-13] MEDS: fentaNYL 100 MCG/2 ML INJ 50 MCG IV (10:30)
[2019-02-13] MEDS: LACTATED RINGERS 1,000 ML 125 ML IV ×2 (11:18→20:05)
[2019-02-13] MEDS: KETOROLAC 30 MG/ML VIAL IV ×2 (11:54→18:17)
--- NOTE | 2019-02-13 13:29 | CM.IDA ---
Initial DCP Assessment Note: Pt is a 33 yo male, resident of [place]. Pt is under observation for a lap appy scheduled with Dr Zamorano. PCP: Apurva Treviño Payer: Ladonna Reviewed chart. Pt is indp. and active at baseline. Pt in the OR this morning. Dr Zamorano's notes indicate pt had a necrotic appendicitis with perforation of the appendix. Pt will be started on IV abx. DC home w/ no barriers is expected for this 33 yo pending medical POC and clearance. [employer]ER[employer]IFIER team will follow closely in case any DC needs arise. PASCUAL Monahan Discharge Planning/Care Management CM Discharge Assessment Start: 02/13/19 13:22 Freq: Status: Active Protocol: Document 02/13/19 13:22 DANIEL (Rec: 02/13/19 13:29 DANIEL [id number]) Discharge Planning Assessment Assigned Quarter Folder PASCUAL Del Real DPOA/Assigned Designee Name Rahel Singh, spouse Contact Information [phone] Advance Directives? No History Provided By Patient Prior Living Arrangements House Household Members spouse children Type of transporation used prior to Drives own vehicle admit Comment Works Independent with ADL's Yes Is patient alert and oriented? Yes Barriers to Discharge No Discharge Plan Home Transportation Arrangement Family Referrals Initiated None needed Review Status In Process
[2019-02-13] MEDS: GABAPENTIN 300 MG CAPSULE PO (21:23)
[2019-02-13] MEDS: ENOXAPARIN 40 MG/0.4 ML SYRINGE SUBCUT (21:23)
[2019-02-13] MEDS: MORPHINE 4 MG/ML INJ IV (21:25)
--- NOTE | 2019-02-13 22:18 | PC.NURSE ---
pt has been up multiple times independent in room with steady gait. BTs + with liquid stool x2. warm blanket to abdomen for comfort. medicated with IV toradol with relief. pt wanting to try IV morphine for pain management around 2129. pt reports sensitive to narcotics so was medicated with 1mg Morphine. states felt warm but minimal relief. pt not wanting further morphine. assisted to reposition in bed after being up in recliner. tolerating clear liquid diet. 20ml out of ALYSSA drain.
[2019-02-14] MEDS: PIPERACILLIN-TAZO 3.375 GM/50 ML FROZ.PIGGY IV ×3 (00:03→12:18)
[2019-02-14 00:05] VITALS: BP 121/65; PULSE 78; RESP 18; TEMP 36.1; O2SAT 95
[2019-02-14] MEDS: KETOROLAC 30 MG/ML VIAL IV ×2 (00:17→09:23)
[2019-02-14] MEDS: MORPHINE 4 MG/ML INJ IV (01:10)
[2019-02-14 04:35] VITALS: BP 127/83; PULSE 77; RESP 18; TEMP 36.4; O2SAT 97
[2019-02-14] MEDS: LACTATED RINGERS 1,000 ML 125 ML IV (04:37)
[2019-02-14 05:58] LABS: Add Manual Diff / Slide Review NO; Basophils Absolute Auto 0 /uL (0-100); Basophils Percent Auto 0.3 % (0-2); Eosinophils Absolute Auto 0 /uL (0-450); Eosinophils Percent Auto 0.2 % (2-4); Hematocrit 35.3 % (41-53); Hemoglobin 12.5 g/dL (13.5-17.5); Lymphocytes Absolute Auto 900 /uL (1100-4500); Lymphocytes Percent Auto 9.4 % (25-40); Mean Corpuscular HGB Conc 35.3 % (30-36); Mean Corpuscular Hemoglobin 30.6 PG (26-34); Mean Corpuscular Volume 86.6 fL (80-100); Monocytes Absolute Auto 700 /uL (0-900); Monocytes Percent Auto 7.7 % (3-14); Neutrophils Absolute Auto 8000 /uL (1500-7000); Neutrophils Percent Auto 82.4 % (50-75); Platelet Count 207 X10^3/uL (150-400); Red Blood Cell Count 4.07 X10^6/uL (4.5-5.9); Red Cell Distribution Width 13.2 % (11.6-14.8); White Blood Cell Count 9.7 X10^3/uL (4.5-11.0)
[2019-02-14 07:35] VITALS: BP 136/76; PULSE 69; RESP 15; TEMP 36.4; O2SAT 97
[2019-02-14] MEDS: GABAPENTIN 300 MG CAPSULE PO (09:22)
[2019-02-14] MEDS: ENOXAPARIN 40 MG/0.4 ML SYRINGE SUBCUT (09:22)
--- NOTE | 2019-02-14 10:30 | PC.NURSE ---
Addendum entered by Brandy Barry R.N. 02/14/19 13:40: Pts diet advanced to regular. Pt ate a small amount and denies nausea. ALYSSA drain taken out by surgeon and he has discharge orders to go home. Original Note: Pt has lap sites x3 all cdi. Alyssa drain putting out ss drainage. He is up independently to the bathroom, staff does assist with unplugging iv machine. Pt has had a loose stool today. Voiding well. Tolerating clear liquids fine and denies nausea.
--- NOTE | 2019-02-14 11:35 | PT.IIE ---
Current Diagnoses Acute appendicitis with perforation and localized peritonitis, without abscess (02/12/19) Surgery Performed Operation Date: 02/13/19 07:45 Actual Procedures p Laparoscopic Appendectomy - Rah Zamorano MD Surgical History (Last Reviewed 02/13/19 @ 07:44 by Rah Zamorano MD) No pertinent past surgical history (Acute) Medical History (Last Reviewed 02/13/19 @ 07:44 by Rah Zamorano MD) No active medical problems (Acute) Obese (Acute) Physical Therapy Inpatient Evaluation/Re-Eval M1 PT/OT-IP Prior Functional Status Start: 02/14/19 13:30 Freq: NEEDED Status: Active Protocol: Document 02/14/19 11:35 AB (Rec: 02/14/19 13:40 AB [id number]) Medical Review Prior Functional Status Medical History Reviewed Yes Communication able to make needs known Mobility and Gait pt stated that he is independent with all mobilities and ambulation without AD Social History Household Members spouse children Living Arrangements House Number of Floors (Floors) Two Floors Number of Stairs To Enter/Railing? has no steps to get into the house from the garage has 5 steps from the front to get into the house with bilateral wide rails; 6 steps B rails to get into his bedroom. 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 Current Condition Start: 02/14/19 13:30 Freq: NEEDED Status: Active Protocol: Document 02/14/19 11:35 AB (Rec: 02/14/19 13:40 AB [id number]) Physical Therapy Current Condition Current Condition Evaluation Date 02/14/19 Treatment Diagnosis s/p lap appendectomy; difficulty in walking Onset Date 02/12/19 Precautions Abdominal Surgery Precautions Log Roll Lifting Restrictions Gait Belt above Incisional Area M3 PT-IP Subjective Start: 02/14/19 13:30 Freq: NEEDED Status: Active Protocol: Document 02/14/19 11:35 AB (Rec: 02/14/19 13:40 AB [id number]) Subjective Physical Therapy Visit Type Type Initial Evaluation Visit Start Time 11:35 Visit Stop Time 12:10 Total Visit Minutes 35 Number of VMWARE ENGINEER Visits 0 Physical Therapy Visit Comments Patient Comments pt agreeable to do PT Therapy Pain Assessment Pain When Pain Assessed At Rest Pain Present Pain Present Pain Reported Location abd Intensity 3 Scale Used increased during mobility Pain Management Techniques Timing of Activity with Medications M4 PT-IP Mobility and Gait Start: 02/14/19 13:30 Freq: NEEDED Status: Active Protocol: Document 02/14/19 11:35 AB (Rec: 02/14/19 13:40 AB [id number]) PT-Bed Mobility Assessment Rolling Type of Rolling Log Rolling Level of Assist Standby Assistance Supine to Sit Supine to Sit Standby Assistance Sit to Supine Sit to Supine Standby Assistance Scooting Scooting to Edge of Bed Standby Assistance PT-Transfer Assessment Sit to and From Stand Sit to and from Stand Standby Assistance Equipment Transfer Assistive Device Gait Belt Orthotic/Prosthetic Devices or Brace: No Transfers Transfer Destination Bed Transfer Technique Stand Step Pivot Transfer Ability Level of Assist Standby Assistance Gait Assessment Gait Gait Assistance Required: Standby Assistance Distance (Feet) 200 Able to Maintain Weight Bearing Status Yes During Gait Assistive Devices Assistive Device None Gait Belt Orthotic/Prosthetic Devices or Brace: No Factors Limiting Gait Function Factors Limiting Gait Function Decreased Activity Tolerance Decreased Strength Limited Range of Motion Pain Comments Gait Comments pt completed ambulation without AD SBA 200 ft x 2 Stair Climbing Assessment Evaluation Level of Assist On Stairs Standby Assistance Devices Stair Climbing Assistive Devices None Left Railing Technique/Endurance Stair Climbing Direction Ascend and Descend Stair Climbing Technique Step Over Step Number of Steps Climbed 3 Query Text: Stair Climbing Set # Repetitions (reps) 3 Comments Stair Climbing Comments pt completed up/down steps using one L rail SBA; also completed without rails SBA PT-Balance Assessment Sitting Balance and Reactions Static Sitting Balance Ability Normal Dynamic Sitting Balance Ability Normal Standing Balance and Reactions Static Standing Balance Ability Good Dynamic Standing Balance Ability Good Device Used without AD M5 PT-IP Objective Assessments Start: 02/14/19 13:30 Freq: NEEDED Status: Active Protocol: Document 02/14/19 11:35 AB (Rec: 02/14/19 13:40 AB [id number]) Orientation Orientation/Cognition Level of Alertness Alert Orientation Name Age Birthday Month Date Year Day of Week Place Situation Language Function Ability No Deficits Noted Safety Awareness Understands Safety Issues Memory Description No Deficits Noted Gross Range of Motion Lower Extremity ROM Assessment Within Functional Limits Strength Lower Extremity Strength Assessment Within Functional Limits Coordination Assessment Gross Coordination Gross Coordination WNL Sensation Assessment Sensation Gross Sensation WNL Muscle Tone Muscle Tone WNL Yes M6 PT-IP Treatment Start: 02/14/19 13:30 Freq: NEEDED Status: Active Protocol: Document 02/14/19 11:35 AB (Rec: 02/14/19 13:40 AB [id number]) Physical Therapy Treatment Education Education Provided Precautions Post-Op Packet Safety M7 PT-IP Assessment and Plan Start: 02/14/19 13:30 Freq: NEEDED Status: Active Protocol: Document 02/14/19 11:35 AB (Rec: 02/14/19 13:40 AB [id number]) PT Summary Assessment and Plan Potential Rehabilitation Potential Good Status of Condition at Evaluation Stable Summary Impairments Pain ROM Strength Balance Coordination Sensation Bed Mobility Transfers Gait Activity Tolerance Assessment Summary pt doing well with mobility requiring SBA. presents with increase time to complete tasks with pain as a factor. pt may go home when medically stable. Goals Bed Mobility Goal Independent Transfer Goal Independent Gait Goal Independent Gait Distance 300 Other Goals up/down 5 steps 1 rail mod I Days to Meet Goals 3 Frequency of Treatment Frequency Of Treatment Once a Day Treatment Plan Physical Therapy Treatment Plan Bed Mobility Training Transfer Training Gait Training Therapeutic Exercise Balance Retraining Post Op Education Discharge Planning Hot or Cold Pack Neuromuscular Re-ed Coordination Retraining Manual Therapy Recommendations To Nursing Amount of Assist Needed Standby Assistance Discharge Recommendations PT Discharge Recommendations Home with Assistance
--- NOTE | 2019-02-14 11:42 | CM.DANOTE ---
Per MD, pt tolerated surgical procedure well and finishing IV-Abx and may be stable for d/c home this evening or tomorrow on oral medications. Advancing pt's diet from full liquids today. SW met bedside with pt and explained role and pt confirms that he currently lives in [place] with his parents, and 2 children. 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 Pt states his spouse and children are currently visiting family in [place] but that his parents are available for transport home and assist at d/c and his mom has some nursing training and can help with any wound care. Pt's preference is to d/c home today if possible and does not have any concerns for d/c. Pt plans to let RN know of his preferred pharmacy to fax rx ahead of time. Plan: SW to follow for likely pt d/c home to parents house when medically stable this evening or tomorrow. No SW needs at this time. Michelle Katz MSW
[2019-02-14] MEDS: OXYCODONE IR 5 MG TABLET PO (12:18)
--- NOTE | 2019-02-14 12:19 | PM.PN.1 ---
Subjective Date Patient Seen: 02/14/19 Time Patient Seen: 09:00 Interval history: Feeling quite well this morning, minimal pain Passing flatus, has had a bowel move Tolerating liquid diet without difficulty overnight Exam Vital Signs (past 8 hours): - 02/14/19 04:35 02/14/19 07:35 Temperature 97.6 F 97.6 F Pulse Rate 77 69 Respiratory Rate 18 15 Blood Pressure 127/83 136/76 Pulse Oximetry 97 97 Oxygen Delivery Method Nasal Cannula Oxygen Flow Rate 0 Narrative Exam Narrative: Well-appearing man in no acute distress Breathing comfortably on room air Regular rate and rhythm Abdomen soft minimally tender, nondistended, dressing dry Periphery warm well perfused Objective Labs Result Diagrams: 02/14/19 05:35 02/12/19 20:20 Labs: Laboratory Results - last 24 hr 02/14/19 05:35 WBC 9.7 RBC 4.07 L Hgb 12.5 L Hct 35.3 L MCV 86.6 MCH 30.6 MCHC 35.3 RDW 13.2 Plt Count 207 Neut % (Auto) 82.4 H Lymph % (Auto) 9.4 L [place] % (Auto) 7.7 Eos % (Auto) 0.2 L Baso % (Auto) 0.3 Neut # (Auto) 8000 H Lymph # (Auto) 900 L [place] # (Auto) 700 Eos # (Auto) 0 Baso # (Auto) 0 Assessment & Plan Assessment & Plan narrative: 33-year-old man postoperative day 1. Status post laparoscopic appendectomy for gangrenous appendicitis with small perforation. Now well with normalization of white blood cell count on pip/aileen. Plan: Starting regular diet DC IV pain medicine, starting oral regimen MiraLax Continues to do well today will plan on discharging home -with an additional 5 days of antibiotic for total of 7 day course/ Quality VTE Deep Vein Thrombosis/Pulmonary Embolism Present on Admission: No
[2019-02-14] MEDS: ACETAMINOPHEN 325 MG TABLET 975 MG PO (12:20)
[2019-02-14 12:37] VITALS: BP 135/83; PULSE 58; RESP 16; TEMP 37.4; O2SAT 99
== END 2019-02-14 14:15 | disposition home or self-care (01) | DRG 340 ==
LOC: ED 22:42 → AC 23:29
PROVIDERS: Admitting Provider Specialist; Emergency Provider Emergency Medicine; Family Provider Physician Assistant; PCP Physician Assistant; Visit Provider Specialist
PROC: 0DTJ4ZZ Resection of Appendix, Percutaneous Endoscopic Approach (ICD-10-PCS; CPT 44970; principal; 2019-02-13 07:45)
DX: K35.32 Acute appendicitis with perforation, localized peritonitis, and gangrene, without abscess (principal); K35.891 Other acute appendicitis without perforation, with gangrene; E66.9 Obesity, unspecified; Z68.37 Body mass index [BMI] 37.0-37.9, adult
CPT/HCPCS: 36415; 36591; 44970; 74177; 80053; 81003; 83690; 85025; 85610; 85730; 93005; 96374; 96375; 97161; 99233; 99283; 99285; J0330; J1100; J1170; J1650; J1885; J2270; J2405; J2543; J2704; J3010; Q9967